=== PATIENT | female | born 1965 | race Caucasian/White ===

== ENCOUNTER 2020-11-23 13:08 | Observation (INO) | payer BC, OTHER ==
[2020-11-23] MEDS ORDERED: ASPIRIN 81 MG CHEWABLE TABLETS PO ONE (14:42)
[2020-11-23] MEDS ORDERED: ASPIRIN 81 MG CHEWABLE TABLETS ONE (15:00)
[2020-11-23 15:24] LABS: BASO % 0.2 % (0-2.0); EOS % 1.2 % (0-4.5); HEMATOCRIT 38.8 % (32.4-45.2); LYMPH % 12.6 % (8-40); MCH 29.5 pg (25.7-33.7); MCHC 33.4 g/dl (32.0-36.0); MEAN CELL VOLUME 88.1 fl (80-96); MEAN PLT VOLUME 8.7 fl (7.5-11.1); MONO % 6.8 % (3.8-10.2); NEUT % 79.2 % (42.8-82.8); PLATELET COUNT 499 10^3/uL (134-434); RDW 13.3 % (11.6-15.6); WHITE BLOOD COUNT 14.3 K/mm3 (4.0-10.0)
[2020-11-23 15:36] LABS: INR 0.95 (0.83-1.09); PROTHROMBIN TIME (PATIENT) 11.7 SEC (9.7-13.0)
[2020-11-23 15:39] LABS: ACTIVATED PTT 32.6 SECONDS (25.2-36.5)
[2020-11-23 15:42] LABS: CHLORIDE 107 mmol/L (98-107); SODIUM 142 mmol/L (136-145)
[2020-11-23 15:44] LABS: CALCIUM 9.4 mg/dL (8.5-10.1)
[2020-11-23 15:45] LABS: ANION GAP 7 MMOL/L (8-16); BLOOD UREA NITROGEN 14.8 mg/dL (7-18); CO2 28 mmol/L (21-32); GLUCOSE,RANDOM 83 mg/dL (74-106)
[2020-11-23 15:48] LABS: CREATININE 0.8 mg/dL (0.55-1.3); SGOT/AST 15 U/L (15-37); SGPT/ALT 25 U/L (13-61)
[2020-11-23 15:49] LABS: BILIRUBIN,TOTAL 0.3 mg/dL (0.2-1); TOT PROT 7.4 g/dl (6.4-8.2)
[2020-11-23 15:51] LABS: ALK PHOS 77 U/L (45-117)
[2020-11-23 15:53] LABS: N-TERMINAL BNP 75.2 pg/ml (5-125)
[2020-11-23] MEDS ORDERED: NITROGLYCERIN SUBLINGUAL 1/150 0.4 MG TAB SL PRN (22:39)
[2020-11-23] MEDS ORDERED: MAG HYDROX/AL HYDROX/SIMETH 30 ML UNIT-DOSE CUP PO PRN (22:40)
[2020-11-23] MEDS: MELATONIN 5 MG TABLETS PO ONE (23:41)
[2020-11-23] MEDS: GABAPENTIN 100 MG CAPSULE PO SCH (23:41)
[2020-11-24 03:57] VITALS: BMI 40.4
[2020-11-24] MEDS: MELATONIN 5 MG TABLETS PO ONE (04:15)
[2020-11-24] MEDS: GABAPENTIN 100 MG CAPSULE PO SCH ×2 (06:03→13:13)
[2020-11-24 08:14] LABS: EOS % 6.4 % (0-4.5); HEMATOCRIT 37.3 % (32.4-45.2); HEMOGLOBIN 12.3 GM/dL (10.7-15.3); LYMPH % 32.4 % (8-40); MCH 28.9 pg (25.7-33.7); MCHC 32.9 g/dl (32.0-36.0); MEAN PLT VOLUME 7.2 fl (7.5-11.1); MONO % 7.6 % (3.8-10.2); NEUT % 52.6 % (42.8-82.8); PLATELET COUNT 276 10^3/uL (134-434); RBC 4.24 M/mm3 (3.60-5.2); RDW 13.9 % (11.6-15.6); WHITE BLOOD COUNT 4.3 K/mm3 (4.0-10.0)
[2020-11-24 08:25] LABS: CALCIUM 9.2 mg/dL (8.5-10.1)
[2020-11-24 08:26] LABS: BLOOD UREA NITROGEN 11.2 mg/dL (7-18)
[2020-11-24 08:29] LABS: CREATININE 0.7 mg/dL (0.55-1.3)
[2020-11-24] MEDS ORDERED: PANTOPRAZOLE 40 MG TABLET PO SCH (10:00)
[2020-11-24] MEDS ORDERED: BUDESONIDE/FORMETEROL FUMARATE 80/4.5 mcg INHALER IH SCH (10:00)
[2020-11-24] MEDS ORDERED: ASPIRIN COATED 81 MG TABLET.EC PO SCH (10:00)
[2020-11-24] MEDS ORDERED: HYDROXYCHLOROQUINE SO4 200 MG TABLET (FP) PO SCH (10:00)
[2020-11-24] MEDS ORDERED: PT OWN MED DRAWER 7, Y5N ONE (10:02)
[2020-11-24] MEDS: HEPARIN NA (PORCINE) 5,000 UNITS/ML 1ML VIAL SQ SCH ×2 (10:11→10:14)
[2020-11-24 10:15] VITALS: BP 112/64; PULSE 52; TEMP 98
== END 2020-11-24 15:33 | disposition home or self-care (01) ==
LOC: JER 13:08 → UNDOADMOB 19:48 → INTOOBSV 19:48 → J4W 19:48
PROVIDERS: ADMIT Internal Medicine; ATTEND Internal Medicine
PROC: 3E033GC Introduction of Other Therapeutic Substance into Peripheral Vein, Percutaneous Approach (ICD-10-PCS; principal; 2020-11-23)
PROC: 3E0F7SF Introduction of Other Gas into Respiratory Tract, Via Natural or Artificial Opening (ICD-10-PCS; 2020-11-23)
DX: R07.9 Chest pain, unspecified (principal); D72.829 Elevated white blood cell count, unspecified; D47.3 Essential (hemorrhagic) thrombocythemia; I10 Essential (primary) hypertension; E03.9 Hypothyroidism, unspecified; E89.2 Postprocedural hypoparathyroidism; I71.2 Thoracic aortic aneurysm, without rupture; J45.909 Unspecified asthma, uncomplicated; M06.9 Rheumatoid arthritis, unspecified; M79.7 Fibromyalgia; G47.33 Obstructive sleep apnea (adult) (pediatric); E66.01 Morbid (severe) obesity due to excess calories; Z68.41 Body mass index [BMI] 40.0-44.9, adult; R91.1 Solitary pulmonary nodule; R73.03 Prediabetes; Z88.0 Allergy status to penicillin; Z91.013 Allergy to seafood; Z91.018 Allergy to other foods
CPT/HCPCS: 36415; 71045-TC-FY; 71275-TC; 74174-TC; 80048; 80053; 82550; 82962; 83880; 84443; 84484; 84703; 85025; 85610; 85730; 93005; 93010; 93306-TC; 99285-25; C9803; G0378; J1644; Q9967; U0003; U0005

== ENCOUNTER 2022-04-30 15:08 | Emergency (ER) | payer OTHER ==
[2022-04-30 15:49] VITALS: BP 108/58; PULSE 60; RESP 18; TEMP 98.2; BMI 39.6
[2022-04-30] MEDS ORDERED: KETOROLAC TROMETHAMINE 30 MG/1 ML VIAL IM ONE (16:23)
[2022-04-30] MEDS ORDERED: KETOROLAC TROMETHAMINE 30 MG/1 ML VIAL ONE (16:25)
== END 2022-04-30 18:49 | disposition home or self-care (01) ==
LOC: JERFT 15:08
PROC: 3E0233Z Introduction of Anti-inflammatory into Muscle, Percutaneous Approach (ICD-10-PCS; principal; 2022-04-30)
DX: M79.605 Pain in left leg (principal)
CPT/HCPCS: 73610-TC-LT-FY; 93971-TC; 99284-25

== ENCOUNTER 2023-12-31 09:51 | Emergency (ER) | payer OTHER ==
[2023-12-31 09:58] VITALS: RESP 18; TEMP 98.4; BMI 43.0
[2023-12-31] MEDS: morphine CARPU-JECT 8 MG/1 ML DISP.SYRIN IVPUSH ONE ×2 (10:15→13:22)
[2023-12-31] MEDS ORDERED: ONDANSETRON 4 MG/2 ML VIAL ONE (10:18)
[2023-12-31] MEDS ORDERED: morphine SULFATE 4 MG/ML VIAL ONE ×2 (10:18→13:13)
[2023-12-31] MEDS: ONDANSETRON 4 MG/2 ML VIAL IVPUSH ONE (10:43)
[2023-12-31] MEDS ORDERED: MORPHINE SULFATE 2 MG/ML SYRINGE ONE ×2 (13:13→15:12)
[2023-12-31 13:24] VITALS: BP 122/62; PULSE 61
[2023-12-31] MEDS: morphine CARPU-JECT 2 MG/1 ML DISP.SYRIN IVPUSH ONE (15:34)
== END 2023-12-31 17:43 | disposition home or self-care (01) ==
LOC: JER 09:51
PROC: 3E033NZ Introduction of Analgesics, Hypnotics, Sedatives into Peripheral Vein, Percutaneous Approach (ICD-10-PCS; principal; 2023-12-31)
PROC: 3E033NZ Introduction of Analgesics, Hypnotics, Sedatives into Peripheral Vein, Percutaneous Approach (ICD-10-PCS; 2023-12-31)
PROC: 3E033NZ Introduction of Analgesics, Hypnotics, Sedatives into Peripheral Vein, Percutaneous Approach (ICD-10-PCS; 2023-12-31)
DX: S52.591A Other fractures of lower end of right radius, initial encounter for closed fracture (principal); S52.601A Unspecified fracture of lower end of right ulna, initial encounter for closed fracture; W18.30XA Fall on same level, unspecified, initial encounter
CPT/HCPCS: 73070-TC-RT-FY; 73090-TC-RT-FY; 73110-TC-RT-FY; 73130-TC-RT-FY; 99284-25